=== PATIENT | male | born 1970 | race Two or more races ===

== ENCOUNTER 2024-05-31 00:40 | Emergency (ER) | payer MEDICARE, OTHER ==
[~2024-05-31] VITALS: Ht 167.6 cm; Wt 90.7 kg
[2024-05-31 00:49] VITALS: BP 139/75; TEMP 98
[2024-05-31 01:00] VITALS: O2SAT 96
== END 2024-05-31 06:45 | disposition home or self-care (01) ==
LOC: ER 02:51
DX: F10.10 Alcohol abuse, uncomplicated (principal); F32.A Depression, unspecified; F41.9 Anxiety disorder, unspecified; Y90.9 Presence of alcohol in blood, level not specified
CPT/HCPCS: 99283; 82962; A6403